=== PATIENT | male | born 1980 | race Caucasian/White ===

== ENCOUNTER 2020-06-13 22:43 | Emergency (ER) | payer OTHER, SELFPAY ==
[2020-06-13 23:00] VITALS: BP 130/74; PULSE 81; RESP 18; TEMP 36.6; O2SAT 96
[2020-06-13 23:30] LABS: Basophils Absolute Auto 0.1 K/mm3 (0.0-0.1); Basophils Percent Auto 0.5 % (0.2-1.2); Eosinophils Absolute Auto 0.2 K/mm3 (0-0.3); Eosinophils Percent Auto 1.9 % (0-4.4); Hematocrit 46.1 % (42.0-52.0); Immature Granulocyte Absolute 0.04 K/mm3 (0.00-0.031); Immature Granulocyte Percent A 0.4 % (0-0.5); Lymphocytes Absolute Auto 3.55 K/mm3 (0.9-3.2); Lymphocytes Percent Auto 36.9 % (18.3-44.2); Mean Corpuscular HGB Conc 34.7 g/dl (32-36); Mean Corpuscular Hemoglobin 31.3 pg (26-34); Mean Platelet Volume 10.4 fl (7.4-10.4); Monocytes Absolute Auto 0.8 K/mm3 (0.1-0.6); Monocytes Percent Auto 8.7 % (2.6-8.5); Neutrophils Percent Auto 51.6 % (45.5-73.1); Platelet Count Result 271 k/mm3 (150-375); Red Blood Count 5.12 M/mm3 (4.6-6.20); Red Cell Distribution Width 13.7 % (11.5-14.5); White Blood Count 9.6 K/mm3 (4.5-10.0)
[2020-06-13 23:33] LABS: Add Urine Microscopic? NO; Appearance Urine Clear (Clear); Bilirubin Urine Negative (Negative); Blood Urine Negative (Negative); Color Urine Straw (Yellow); Glucose Urine UA Negative (Negative); Ketones Urine Negative (Negative); Leukocyte Esterase Ur Negative LEU/UL (Negative); Nitrate Urine Negative (Negative); Protein Urine Negative (Negative); Specific Grav Ur 1.008 (1.001-1.035); Urobilinogen Urine Negative mg/dL (<2.0)
[2020-06-13 23:40] LABS: Alanine Aminotransferase 61 U/L (4-50); Albumin Level 4.6 g/dL (3.5-5.1); Alkaline Phosphatase 76 U/L (38-126); Anion Gap 11 mmol/L (8-16); Aspartate Amino Transferase 43 U/L (17-59); Blood Urea Nitrogen 16 mg/dL (9-20); Carbon Dioxide 24 mmol/L (22-30); Chloride 106 mmol/L (98-107); Estimated Glomerular Filt Rate > 60; Glucose 121 mg/dL (75-110); Potassium 4.1 mmol/L (3.4-5.0); Sodium 141 mmol/L (137-145)
[2020-06-13 23:46] LABS: Amphetamine Screen Urine Negative (Negative); Barbiturate Screen Urine Negative (Negative); Benzodiazepines Screen Urine Negative (Negative); Cannabinoid Screen Urine Positive (Negative); Cocaine Screen Urine Negative (Negative); Methadone Screen Urine Negative (Negative); Opiate Screen Urine Negative (Negative); Phencyclidine Screen Urine Negative (Negative)
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
[2020-06-14] LABS: Ethanol 209 mg/dL (<10)
[2020-06-14] MEDS: HALOPERIDOL LACTATE 5 MG/ML VIAL IM (00:10)
--- NOTE | 2020-06-14 00:30 | PC.NURSE ---
Pt's bagged green leafy substance taken by security and editor house organ Nava to security lock up.
[2020-06-14 06:35] VITALS: BP 100/60; PULSE 62; RESP 16; TEMP 36.6; O2SAT 96
--- NOTE | 2020-06-14 06:35 | PC.NURSE ---
Repeat ethanol level drawn and sent to lab by this RN.
[2020-06-14 06:56] LABS: Ethanol 117 mg/dL (<10)
--- NOTE | 2020-06-14 07:00 | PC.NURSE ---
rn report from Anne
--- NOTE | 2020-06-14 07:35 | PC.NURSE ---
pt sleeping at this time. no current needs. sitter at bedside.
--- NOTE | 2020-06-14 08:36 | PC.NURSE ---
pt sleeping at this time. sitter at bedside.
[2020-06-14 09:33] LABS: Ethanol 83 mg/dL (<10)
--- NOTE | 2020-06-14 09:46 | PC.NURSE ---
pt sleeping on stretcher, sitter at bedside, no current needs.
--- NOTE | 2020-06-14 10:20 | PC.NURSE ---
pt sleeping, sitter at bedside. no current needs.
[2020-06-14 11:14] LABS: Ethanol 53 mg/dL (<10)
--- NOTE | 2020-06-14 11:15 | PC.NURSE ---
pt sleeping, no current needs. Lunch tray ordered.
--- NOTE | 2020-06-14 12:10 | PC.NURSE ---
pt eating lunch tray, no current needs .sitter at bedside.
--- NOTE | 2020-06-14 13:10 | PC.NURSE ---
pt sleeping, sitter at bedside no current needs.
--- NOTE | 2020-06-14 14:20 | PC.NURSE ---
pt sleeping on cot. no current needs, sitter at bedside.
--- NOTE | 2020-06-14 14:55 | PC.NURSE ---
[facility] has no beds at this time.
--- NOTE | 2020-06-14 15:15 | PC.NURSE ---
sitter at bedside, pt resting on stretcher. no current needs.
--- NOTE | 2020-06-14 15:49 | PC.NURSE ---
Kevon gomes and recommending dropper tank storage placement. per dr victoria Reyes, RN
--- NOTE | 2020-06-14 16:19 | PC.NURSE ---
pt resting on stretcher, no current needs. sitter at bedside.
--- NOTE | 2020-06-14 17:50 | PC.NURSE ---
pt resting on stretcher, no current needs . sitter at bedside..
--- NOTE | 2020-06-14 17:56 | PC.NURSE ---
RN spoke with Yazmin urbano [facility]
[2020-06-14 18:06] VITALS: BP 128/78; PULSE 67; RESP 18; O2SAT 98
--- NOTE | 2020-06-14 18:09 | PC.NURSE ---
pt resting on stretcher, sitter at bedside, vss, no current needs.
--- NOTE | 2020-06-14 18:21 | PC.NURSE ---
Kurt Martin (intake) spoke with RN about possible placement.
--- NOTE | 2020-06-14 19:20 | PC.NURSE ---
rn report given to
--- NOTE | 2020-06-14 19:49 | PC.NURSE ---
Spoke with Tish from Crisis---she will follow up with aTmmy if unable to place tonight she will restart looking for placement in AM
[2020-06-14] MEDS: NICOTINE (*PBKC) 21 MG PATCH 1 PATCH TRANSDERM (19:52)
[2020-06-15] MEDS: ACIDOPHILUS/BULGARICUS CHEWABLE TABLET 1 TABLET PO (05:19)
[2020-06-15 06:26] VITALS: BP 122/96; PULSE 43; RESP 16; TEMP 36.9; O2SAT 98
--- NOTE | 2020-06-15 06:34 | PC.NURSE ---
Spoke with Kay at [facility]--she has evaluation and will be placing call to [facility] for referral
--- NOTE | 2020-06-15 07:10 | PC.NURSE ---
Report to oncoming shift RN
--- NOTE | 2020-06-15 07:22 | PC.NURSE ---
Pt requesting to take a shower at this time.
--- NOTE | 2020-06-15 07:51 | PC.NURSE ---
Pt taken to room 230 by ED security and certified control systems technician to take a shower
--- NOTE | 2020-06-15 09:34 | PC.NURSE ---
Faxed face sheet to [facility] called and stated that pt was denied from [facility]
--- NOTE | 2020-06-15 09:50 | PC.NURSE ---
Called pharmacy to send up Nicotine patch. Told them that his patch from last night fell off due to sweat
[2020-06-15] MEDS: NICOTINE (*PBKC) 21 MG PATCH 1 PATCH TRANSDERM (10:45)
[2020-06-15 10:55] VITALS: BP 130/91; PULSE 57; RESP 18; TEMP 36.7; O2SAT 97
--- NOTE | 2020-06-15 10:56 | PC.NURSE ---
Pt chart faxed to [facility]
[2020-06-15 12:14] LABS: SARS-CoV-2 RNA PCR Negative
--- NOTE | 2020-06-15 14:02 | PC.NURSE ---
Pt is taking all of his belonging at this time. Security retrieved his bag of marijuana from the safe and is taking that as well
[2020-06-15 14:35] VITALS: BP 141/98; PULSE 64; RESP 18; TEMP 36.9; O2SAT 97
--- NOTE | 2020-06-15 16:19 | PC.NURSE ---
Pt denied from [facility]
--- NOTE | 2020-06-15 18:06 | PC.NURSE ---
Tish from crisis called and stated that she will have someone come out tonight and have him reevaluated
[2020-06-15 18:13] VITALS: BP 135/99; PULSE 73; RESP 22; O2SAT 98
--- NOTE | 2020-06-15 19:10 | PC.NURSE ---
Report received from off-going RN. Patient has no requests and sitter is with the patient. It is reported that crisis is to come out and re-evaluate the patient this evening. Patient is aware.
--- NOTE | 2020-06-15 23:59 | PC.NURSE ---
Pt on phone or approx 10 min. Back to room without incident. Sitter at bedside.
--- NOTE | 2020-06-16 00:06 | PC.NURSE ---
Addendum entered by Nava Moyer RN 06/16/20 00:14: [employer] made aware, called Crisis to have Rita call about this patient. Original Note: Per paraoptometricpastora Humphries, she states they were talking about where he was from , he told her [place], he then got up and ran out the EMS doors. This RN walked out the EMS door to see if I could find the patient. I heard someone yell, there was a car at the end of the hospital road, the [facility] side, he jumped in and the car took off quickly. Security came outside. The pt was already gone.
--- NOTE | 2020-06-16 00:11 | PC.NURSE ---
Patient was in room with sitter sitting at the door of room 15. At 0002 on 06/16/2020 the patient sitter yelled to nurses station that patient was running and patient was noted to be running down the [place] and exited the ED via the ambulance bay doors. Patient ran from the ED and across the parking lot and entered a car on the road across from the ED entrance. Unable to determine the type of car that he got into. ED Charge nurse notified security and had PD called.
--- NOTE | 2020-06-16 00:16 | PC.NURSE ---
Rita from Crisis made aware pt eloped.
--- NOTE | 2020-06-16 01:15 | PC.NURSE ---
0006[facility]
== END 2020-06-16 00:10 | disposition left against medical advice (07) ==
PROVIDERS: Emergency Medicine; Emergency Provider Emergency Medicine
DX: F32.9 Major depressive disorder, single episode, unspecified (principal); Z20.828 Contact with and (suspected) exposure to other viral communicable diseases
CPT/HCPCS: 36415; 80053; 80307; 81003; 84443; 85025; 87635; 96372; 99284; A9270; C9803; J1630; J2060; U0003

== ENCOUNTER 2021-02-03 09:49 | Emergency (ER) | payer OTHER, SELFPAY ==
--- NOTE | ~2021-02-03 | XR_ITS ---
EXAMINATION: XR wrist RT min 3V EXAM DATE: 02/03/2021 10:39 INDICATION: No known recent injury provided at this time. Pain of the right wrist. TECHNIQUE: Right wrist frontal, frontal with ulnar deviation, oblique and lateral projections obtain ed and reviewed. Correlation is made to right hand exam 05/12/2016. FINDINGS: Right wrist scapholunate joint space is maintained. There are no acute fractures or disloc ations identified. There is no subcutaneous gas. The soft tissue is unremarkable. There are no ra diopaque foreign bodies. IMPRESSION: 1. Unremarkable right wrist exam. Reviewed, dictated and finalized at location A.
--- NOTE | 2021-02-03 09:56 | ED.GENADULT ---
HPI - General Adult General Chief complaint: Extremity Injury, Upper Stated complaint: right wrist pain Time Seen by Provider: 02/03/21 09:56 Source: patient Mode of arrival: ambulatory Limitations: no limitations History of Present Illness HPI narrative: 40-year-old male patient presents to the [facility] with complaints of right wrist pain that started 2 days ago. Patient states yesterday he was doing some repetitive motion of opening boxes all day. Patient states he has been at this new job now for about a month. Patient states it started swelling after work yesterday and got increasingly painful. Denies take anything for pain but states he did ice it yesterday. Patient denies any numbness or tingling to the fingers. Related Data Home Medications Medication Instructions Recorded Confirmed No Home Medications 02/03/21 02/03/21 Allergies Allergy/AdvReac Type Severity Reaction Status Date / Time Mushroom Allergy Mild Unknown Uncoded 06/13/20 23:10 Review of Systems Review of Systems: Narrative: CONSTITUTIONAL: Denies fever, chills, or sweats. EYES: Denies visual changes, redness, or discharge. ENT: Denies rhinorrhea, congestion, sore throat, or otalgia. CARDIOVASCULAR: Denies chest pain, palpitations, or edema. RESPIRATORY: Denies cough or dyspnea. GASTROINTESTINAL: Denies abdominal pain, nausea, vomiting, or diarrhea. GENITOURINARY: Denies dysuria or hematuria. SKIN: Denies rash or itching. MUSCULOSKELETAL: Denies back pain, joint pain, or myalgia. Positive right wrist pain NEUROLOGIC: Denies headache, numbness, or weakness. PSYCHIATRIC: Denies anxiety or depression. PMFSH Past Medical History Medical History Depression Surgical History Surgical History No pertinent past surgical history Social History Social History Substance use: current Substance use type: marijuana Comments At the time of my signature I agree with nursing past medical history, surgical, social, and family history. There is no relevant family history pertinent to the presenting complaint. Exam Narrative: Exam Narrative: GENERAL: Well-appearing, well-nourished, and in no acute distress. HEAD: Normocephalic, atraumatic. EYES: PERRLA and EOMI. ENT: Nares clear, no rhinorrhea or epistaxis. Mucous membranes moist. NECK: Supple. No lymphadenopathy CHEST: Clear to auscultation. No respiratory distress. HEART: Regular rate and rhythm. No murmur heard. Normal peripheral pulses. ABDOMEN: Soft, nontender, nondistended, normal active bowel sounds. EXTREMITIES: The R wrist is without obvious asymmetry or deformity when compared to the L wrist. No surface trauma, open wounds, swelling, or obvious deformity. No overlying erythema or warmth. No bony crepitus or focal area of TTP. Patient does have a slight bump noted to the anterior wrist medial and there does seem to be some elasticity noted to this area with flexion and extension which is what is causing the pain to the area. No scaphoid fullness or tenderness to direct palpation or axial load. Pain with but normal flex/extension, normal ulnar/radial deviation. Motor/sensory function of ulnar, radial, median nerves intact. Ulnar and radial pulses intact. Negaitve Phalen's/Tinel's sign. Negative Miguel test. SKIN: Warm, dry, no rash. NEURO: No focal deficits. Alert and oriented x3. Course Vital Signs Vital signs: Vital Signs Temperature 35.8 C L 02/03/21 10:32 Pulse Rate 60 02/03/21 10:32 Respiratory Rate 16 02/03/21 10:32 Blood Pressure 142/93 H 02/03/21 10:32 Pulse Oximetry 100 02/03/21 10:32 Temperature 35.8 C L 02/03/21 10:32 Pulse Rate 60 02/03/21 10:32 Respiratory Rate 16 02/03/21 10:32 Blood Pressure 142/93 H 02/03/21 10:32 Pulse Oximetry 100 02/03/21 10:32 Vital signs reviewed
--- NOTE | 2021-02-03 10:12 | PC.NURSE ---
Multiple attempts to contact pt have been unsuccessful. Phone goes straight to voicemail. Will continue to attempt to reach pt.
[2021-02-03 10:32] VITALS: BP 142/93; PULSE 60; RESP 16; TEMP 35.8; O2SAT 100
== END 2021-02-03 10:57 | disposition home or self-care (01) ==
PROVIDERS: Emergency Provider Nurse Practitioner Family
DX: S63.501A Unspecified sprain of right wrist, initial encounter (principal); X50.3XXA Overexertion from repetitive movements, initial encounter; Y99.0 Civilian activity done for income or pay
CPT/HCPCS: 73110; 99213; G0463

== ENCOUNTER 2022-06-04 03:42 | Emergency (ER) | payer OTHER, SELFPAY ==
--- NOTE | ~2022-06-04 | XR_ITS ---
XR chest 1V portable DATE: 06/04/2022 06:06 INDICATION: Nonproductive cough. Shortness of breath for 2 days. TECHNIQUE: Portable upright AP chest on 06/04/2022 at 0556 hours COMPARISON: 10/21/2018 AP and lateral chest FINDINGS: Mild bibasilar infiltrate or atelectasis. The lungs otherwise appear clear. No pleural effu abhishek or pulmonary mass congestion or pneumothorax. Normal heart size. IMPRESSION: Mild bibasilar infiltrate or atelectasis, left greater than right Reviewed, dictated and finalized at location A.
[2022-06-04 03:46] VITALS: BP 114/76; PULSE 70; RESP 20; TEMP 36.1; O2SAT 98
--- NOTE | 2022-06-04 04:13 | ECG_ITS ---
Measurements Intervals [place] Rate: 55 P: 47 HI: 156 QRS: 5 QRSD: 85 T: -11 QT: 408 QTc: 391 Interpretive Statements SINUS BRADYCARDIA NONSPECIFIC ST & T-WAVE ABNORMALITY- INFERIOR LEADS BORDERLINE ECG Electronically Signed On 06-04-2022 7:15:43 CDT by Jose Raul Ortega D.O.
--- NOTE | 2022-06-04 04:14 | ED.SOB ---
HPI - SOB/Dyspnea General Chief Complaint: Shortness of Breath/Dyspnea Stated Complaint: shortness of breath Time Seen by Provider: 06/04/22 04:04 History of Present Illness HPI Narrative: Patient is a 42-year-old male complaining of shortness of breath, cough, chest tightness that started when he woke up this morning. Patient states that he has a history of asthma and ran out of his inhaler, claims that the above symptoms is similar when he has an asthma attack. Patient denies any abdominal pain, nausea, vomiting, diaphoresis, fever or chills. Related Data Allergies Allergy/AdvReac Type Severity Reaction Status Date / Time Mushroom Allergy Mild Unknown Uncoded 06/04/22 03:48 Review of Systems Review of Systems: All systems reviewed & are unremarkable except as noted in HPI and below Constitutional: Constitutional: Denies body ache(s), Denies chills, Denies excessive sweating, Denies fatigue, Denies fever(s), Denies headache(s), Denies lethargy, Denies malaise, Denies weakness and Denies weight loss Eyes: Eyes: Denies blurry vision, Denies change in vision and Denies loss of vision ENT: Denies dizziness, Denies ear discharge, Denies headache(s), Denies lip swelling, Denies epistaxis, Denies nasal congestion, Denies neck pain, Denies throat swelling and Denies tongue swelling Cardiovascular: Cardiovascular: Denies chest pain, Denies chest pain at rest, Denies chest pain with activity, Denies diaphoresis, Denies rapid heart rate, Denies edema, Denies irregular heart rhythm, Denies lightheadedness, Denies palpitations, Denies dyspnea and Denies dyspnea on exertion Respiratory: Respiratory: Denies chest congestion, Denies hemoptysis and Denies dyspnea on exertion Gastrointestinal: Gastrointestinal: Denies abdominal pain, Denies melena, Denies hematochezia, Denies diarrhea, Denies nausea, Denies vomiting and Denies hematemesis Musculoskeletal: Musculoskeletal: Denies abnormal gait, Denies deformity, Denies joint swelling, Denies limited range of motion, Denies neck pain and Denies numbness Neurologic: Denies Abnormal speech present, Denies abnormal gait, Denies confusion, Denies dizziness, Denies headache(s), Denies focal weakness, Denies loss of vision, Denies numbness, Denies Other visual disturbances, Denies Sensory deficit (Neuro) and Denies weakness Psychiatric: Psychiatric: Denies confusion, Denies depression, Denies auditory hallucinations, Denies homicidal ideation and Denies suicidal ideation Endocrine: Endocrine: Denies cold intolerance, Denies excessive sweating, Denies fatigue, Denies heat intolerance and Denies palpitations Hematologic/Lymphatic: Hematologic/Lymphatic: Denies easy bleeding and Denies easy bruising Allergic/Immunologic: Allergic/Immunologic: Denies lip swelling, Denies throat swelling and Denies tongue swelling PMFSH Past Medical History Medical History Depression Surgical History Surgical History No pertinent past surgical history Social History Social History Substance use: current Substance use type: marijuana Comments Past medical history: Asthma Family history: None Social history: Positive for smoker, no EtOH use, occasional marijuana use Exam Const: General: cooperative, healthy appearing, comfortable, no acute distress, well developed, alert and awake; No confusion Orientation/consciousness: oriented to person, oriented to place, oriented to time, patient oriented x3 and No confusion Limitations: no limitations HENMT: Head: normal to inspection, normocephalic and atraumatic Ears: hearing grossly normal bilaterally, TM normal on the right and TM normal on the left General nose exam: Normal external nose present, Normal nares present and No nasal discharge present Face and sinus: normal facial exam Mouth: Yes Normal or
[2022-06-04 04:25] VITALS: PULSE 55; RESP 18
[2022-06-04] MEDS: IPRATROPIUM BR 0.02% INH SOLN 0.5 MG/2.5 ML VIAL INHALATION (04:25)
[2022-06-04] MEDS: ALBUTEROL SULFATE NEB 2.5 MG/3 ML INH 5 MG INHALATION (04:25)
[2022-06-04] MEDS: methylPREDNISolone SOD SUCC 125 MG VIAL IV PUSH (04:37)
[2022-06-04 04:45] LABS: Basophils Absolute Auto 0.1 K/mm3 (0.0-0.1); Basophils Percent Auto 0.8 % (0.2-1.2); Eosinophils Absolute Auto 0.3 K/mm3 (0-0.3); Eosinophils Percent Auto 2.6 % (0-4.4); Hematocrit 43.9 % (42.0-52.0); Hemoglobin 14.5 g/dL (14.0-18.0); Immature Granulocyte Absolute 0.03 K/mm3 (0.00-0.031); Immature Granulocyte Percent A 0.3 % (0-0.5); Lymphocytes Absolute Auto 3.56 K/mm3 (0.9-3.2); Lymphocytes Percent Auto 35.5 % (18.3-44.2); Mean Corpuscular Hemoglobin 29.9 pg (26-34); Mean Corpuscular Volume 90.5 fl (80-100); Mean Platelet Volume 10.7 fl (7.4-10.4); Monocytes Absolute Auto 0.8 K/mm3 (0.1-0.6); Monocytes Percent Auto 8.1 % (2.6-8.5); Neutrophils Absolute Auto 5.3 K/mm3 (1.3-6.7); Neutrophils Percent Auto 52.7 % (45.5-73.1); Platelet Count Result 231 k/mm3 (150-375); Red Blood Count 4.85 M/mm3 (4.6-6.20)
[2022-06-04 05:05] LABS: Anion Gap 9 mmol/L (8-16); Blood Urea Nitrogen 14 mg/dL (9-20); Carbon Dioxide 26 mmol/L (22-30); Chloride 106 mmol/L (98-107); Estimated CRCL calculation 80 ml/min; Estimated Glomerular Filt Rate > 60; Glucose 105 mg/dL (65-110); Potassium 3.5 mmol/L (3.4-5.0); Sodium 141 mmol/L (137-145)
[2022-06-04 05:11] LABS: Troponin I < 0.012 ng/mL (0.000-0.034)
[2022-06-04 06:22] VITALS: BP 118/76; PULSE 89; RESP 20; O2SAT 98
== END 2022-06-04 06:23 | disposition home or self-care (01) ==
LOC: ANHED 04:21
PROVIDERS: Emergency Provider Emergency Medicine
DX: J45.901 Unspecified asthma with (acute) exacerbation (principal); R00.1 Bradycardia, unspecified; R94.31 Abnormal electrocardiogram [ECG] [EKG]
CPT/HCPCS: 36415; 71045; 80048; 84484; 85025; 93005; 94640; 96374; 99284; J2930

== ENCOUNTER 2022-11-16 13:32 | Emergency (ER) | payer OTHER, SELFPAY ==
--- NOTE | ~2022-11-16 | XR_ITS ---
EXAMINATION: XR chest 2V DATE: 11/16/2022 14:06 INDICATION: Shortness of breath TECHNIQUE: PA and lateral views of the chest are obtained. COMPARISON: 06/04/2022 FINDINGS: The lungs are free of acute opacities. No pleural effusion or pneumothorax. The cardiomedia stinal silhouette is normal. The visualized bones and soft tissues are unremarkable. IMPRESSION: 1. No acute cardiopulmonary abnormality. Reviewed, dictated and finalized at location B. ROOM OPERATOR
[2022-11-16 13:37] VITALS: BP 121/84; PULSE 86; RESP 16; TEMP 36.8; O2SAT 99
--- NOTE | 2022-11-16 14:15 | ED.URI ---
HPI - URI/Sore Throat General Chief Complaint: Upper Respiratory Infection Stated Complaint: sob Time Seen by Provider: 11/16/22 14:15 Source: patient Mode of arrival: ambulatory Limitations: no limitations History of Present Illness HPI Narrative: [age] male presented requesting an albuterol inhaler. Of note, he was sent to the facility for CXR by pcp with order, but requests to be seen. He endorses a history of asthma. Has been coughing and occasionally short of breath with wheezing. Also states that night he wakes up short of breath. He has been following with his primary care provider for testing, but has not had inhaler refill. He currently denies chest pain, palpitations, shortness of breath, nausea, vomiting diarrhea, fevers or chills. Related Data Allergies Allergy/AdvReac Type Severity Reaction Status Date / Time Mushroom Allergy Mild Unknown Uncoded 11/16/22 14:06 Review of Systems Review of Systems: CONSTITUTIONAL: Denies body aches, fever, chills, or sweats. EYES: Denies visual changes, redness, or discharge. ENT: Denies rhinorrhea, congestion, sore throat, or otalgia. CARDIOVASCULAR: Denies chest pain, palpitations, or edema. RESPIRATORY: per HPI GASTROINTESTINAL: Denies abdominal pain, nausea, vomiting, or diarrhea. GENITOURINARY: Denies dysuria or hematuria. SKIN: Denies rash, itching, or wounds. MUSCULOSKELETAL: Denies back pain, joint pain, or myalgia. NEUROLOGIC: Denies headache, numbness, tingling, or weakness. All systems reviewed & are unremarkable except as noted in HPI and below PMFSH Past Medical History Medical History Depression Surgical History Surgical History No pertinent past surgical history Social History Social History Substance use: current Substance use type: marijuana Comments At time of signature, I have reviewed and agree with nursing past medical, surgical, social and family history unless otherwise noted. Please see nursing chart for further information. There is no relevant family history pertinent to the presenting complaint Exam Narrative: GENERAL: Well-appearing, in no acute distress. EYES: EOMI. No redness or drainage. Conjunctivae normal. ENT: Mucous membranes pink and moist. No rhinorrhea. TMs normal bilaterally. Throat normal. Uvula midline. NECK: Normal AROM. Supple. CHEST: No respiratory distress. LCTAB HEART: Regular rate and rhythm. No murmur appreciated. ABDOMEN: Soft, nontender, nondistended, normal active bowel sounds. EXTREMITIES: Normal range of motion. No edema. SKIN: Warm, dry, no rash. Capillary refill normal. Normal skin turgor. NEURO: Alert and oriented x3. Gait steady. Course Course Emergency Course: Patient is aware of diagnosis, understands and agrees to treatment plan. Anticipatory guidance given. Patient agrees to follow-up as directed and is aware of reasons to seek care at the emergency department. Portions of this record may have been created with voice recognition software Level of Care: Express Care Visit Vital Signs Vital signs: Vital Signs Temperature 98.3 F 11/16/22 13:37 Pulse Rate 86 11/16/22 13:37 Respiratory Rate 16 11/16/22 13:37 Blood Pressure 121/84 11/16/22 13:37 Pulse Oximetry 99 11/16/22 13:37 Oxygen Delivery Room Air 11/16/22 13:37 Temperature 98.3 F 11/16/22 13:37 Pulse Rate 86 11/16/22 13:37 Respiratory Rate 16 11/16/22 13:37 Blood Pressure 121/84 11/16/22 13:37 Pulse Oximetry 99 11/16/22 13:37 Oxygen Delivery Room Air 11/16/22 13:37 MDM - URI/Sore Throat MDM Narrative Medical decision making narrative: Results of chest x-ray reviewed with patient. He will be following with his primary care provider for further evaluation testing Advised supportive measures and signs/sympto
== END 2022-11-16 14:30 | disposition home or self-care (01) ==
PROVIDERS: Emergency Provider Nurse Practitioner Family; PCP Emergency Medicine
DX: R05.9 Cough, unspecified (principal); F12.90 Cannabis use, unspecified, uncomplicated
CPT/HCPCS: 71046; 99213; G0463

== ENCOUNTER 2022-12-09 19:55 | Observation (INO) | payer OTHER, SELFPAY ==
--- NOTE | ~2022-12-09 | XR_ITS ---
EXAMINATION: XR abdomen obstructive series DATE: 12/09/2022 20:22 INDICATION: Abdominal pain. TECHNIQUE: Upright and supine views of the abdomen on 3 radiographs were obtained. COMPARISON: None. FINDINGS: There is dilated small bowel in left abdomen. The colon is normal in caliber. No free intra peritoneal gas. IMPRESSION: 1. Dilated small bowel, consistent with adynamic ileus versus small bowel obstruction. Reviewed, dictated and finalized at location A. S ARTIST IMPRESSION: 1. Dilated small bowel, consistent with adynamic ileus versus small bowel obstr uction.
--- NOTE | ~2022-12-09 | CT_ITS ---
EXAMINATION: CT abdomen pelvis w con DATE: 12/09/2022 22:04 INDICATION: Left lower quadrant abdominal pain. TECHNIQUE: Computed tomography (CT) of the abdomen and pelvis was performed with 100 mL Omnipaque 350 intravenous contrast. Automated exposure control and iterative reconstruction technique were employe d. The dose-length product was 372.58 mGy-cm. COMPARISON: Chest CT 09/09/2015 FINDINGS: The visualized portions of the lung bases demonstrate mild atelectasis. No pleural effusion . The heart size is normal. No pericardial effusion. There is a small sliding hiatal hernia. The live r, gallbladder, spleen, pancreas, and adrenal glands are normal. There are cysts in the kidneys measu ring up to 15 mm on the left. There are scattered diverticula in the colon. There is wall thickening of the sigmoid colon. There is fat stranding adjacent to the sigmoid colon with punctate foci of free gas centered at a diverticulum. There are no dilated loops of bowel. The appendix is normal. There a re no pathologically enlarged lymph nodes. There is trace pelvic ascites. There is mild lumbar spondy losis. IMPRESSION: 1. Acute sigmoid diverticulitis with microperforation. No abscess. Reviewed, dictated and finalized at location A. CING MACHINE OPERATOR
[2022-12-09 20:27] VITALS: BP 134/64; PULSE 84; RESP 16; TEMP 37.6; O2SAT 97
[2022-12-09 21:28] LABS: Basophils Percent Auto 0.2 % (0.2-1.2); Eosinophils Percent Auto 0.2 % (0-4.4); Hemoglobin 15.6 g/dL (14.0-18.0); Immature Granulocyte Absolute 0.06 K/mm3 (0.00-0.031); Immature Granulocyte Percent A 0.3 % (0-0.5); Lymphocytes Absolute Auto 2.16 K/mm3 (0.9-3.2); Lymphocytes Percent Auto 11.3 % (18.3-44.2); Mean Corpuscular HGB Conc 33.9 g/dl (32-36); Mean Corpuscular Hemoglobin 30.2 pg (26-34); Mean Platelet Volume 10.2 fl (7.4-10.4); Monocytes Absolute Auto 1.8 K/mm3 (0.1-0.6); Monocytes Percent Auto 9.5 % (2.6-8.5); Neutrophils Absolute Auto 15.1 K/mm3 (1.3-6.7); Neutrophils Percent Auto 78.5 % (45.5-73.1); Platelet Count Result 247 k/mm3 (150-375); Red Blood Count 5.17 M/mm3 (4.6-6.20); Red Cell Distribution Width 14.2 % (11.5-14.5); White Blood Count 19.2 K/mm3 (4.5-10.0)
[2022-12-09 21:41] LABS: Alanine Aminotransferase 31 U/L (6-50); Albumin Level 4.1 g/dL (3.5-5.1); Alkaline Phosphatase 96 U/L (38-126); Anion Gap 7 mmol/L (8-16); Aspartate Amino Transferase 26 U/L (17-59); Bilirubin,Total 1.1 mg/dL (0.2-1.3); Blood Urea Nitrogen 12 mg/dL (9-20); Calcium 8.4 mg/dL (8.4-10.2); Carbon Dioxide 24 mmol/L (22-30); Chloride 104 mmol/L (98-107); Estimated CRCL calculation 88 ml/min; Estimated Glomerular Filt Rate > 60; Glucose 99 mg/dL (65-110); Lipase 634 U/L (23-300); Potassium 3.9 mmol/L (3.4-5.0); Sodium 135 mmol/L (137-145)
--- NOTE | 2022-12-09 21:50 | ED.ABDPAIN ---
HPI - Abdominal Pain General Chief Complaint: Abdominal Pain <RONALDO Louise Last Filed: 12/10/22 00:07> Stated Complaint: abdominal pain <RONALDO Louise Last Filed: 12/10/22 00:07> Time Seen by Provider: 12/09/22 21:01 <RONALDO Louise Last Filed: 12/10/22 00:07> Source: patient <RONALDO Louise Last Filed: 12/10/22 00:07> Mode of arrival: ambulatory <RONALDO Louise Last Filed: 12/10/22 00:07> Limitations: no limitations <RONALDO Louise Last Filed: 12/10/22 00:07> History of Present Illness HPI narrative: Patient is a 42-year-old male who presents to the ED with report of left lower quadrant abdominal pain. Patient reports he developed pain around 3 AM this morning. Pain began suddenly. Worst in left lower abdomen, but radiates around to his back, into his left groin, and diffusely throughout his abdomen. He thought he had to have a bowel movement this morning, but was unable to. His last BM was yesterday and normal. He did take MiraLAX today and subsequently had a bowel movement. Denied rectal bleeding or melena. He also reports nausea, but denies vomiting, urinary symptoms, fevers, chest pain, difficulty breathing. He has not taken anything for pain. <RONALDO Louise Last Filed: 12/10/22 00:07> Related Data Allergies/Adverse Reactions: Allergies Allergy/AdvReac Type Severity Reaction Status Date / Time Mushroom Allergy Mild Unknown Uncoded 11/16/22 14:06 <RONALDO Louise Last Filed: 12/10/22 00:07> Review of Systems Review of Systems: CONSTITUTIONAL: Denies fever, chills, or sweats. CARDIOVASCULAR: Denies chest pain. RESPIRATORY: Denies dyspnea. GASTROINTESTINAL: See HPI. GENITOURINARY: Denies dysuria or hematuria. MUSCULOSKELETAL: See HPI. NEUROLOGIC: Denies headache, numbness, or weakness. <Ame Joyner PA-C - Last Filed: 12/10/22 00:07> All systems reviewed & are unremarkable except as noted in HPI and below <Ame Joyner PA-C - Last Filed: 12/10/22 00:07> PMFSH Past Medical History Medical History: Medical History Depression <Ame Joyner PA-C - Last Filed: 12/10/22 00:07> Surgical History Surgical History: Surgical History No pertinent past surgical history <Ame Joyner PA-C - Last Filed: 12/10/22 00:07> Social History Social History: Social History Smoking packs per day: 1 Smoking cigarettes per day: 20.0 Smoking status: Current every day smoker Tobacco type: cigarettes Alcohol intake: never Substance use: current Substance use type: marijuana Last use: 12/09/22 Lack of Transportation: No Lack of Food: Never True Current Housing: I Have Housing Concerned About Future Housing: No Difficulty Paying Gas/Electric Bills: No Difficulty Paying for Meds: No Currently Unemployed: No Education: Grade School Difficulty w/ Childcare or Family Care: No Spiritual care concerns: No <Ame Joyner PA-C - Last Filed: 12/10/22 00:07> Exam Narrative: GENERAL: Well appearing, well-nourished, non-toxic, in mild acute distress d/t pain. HEAD: Normocephalic, atraumatic. NECK: Supple. No adenopathy, no masses. RESPIRATORY: Airway patent, respirations nonlabored. Clear to auscultation bilaterally, no rales, rhonchi, wheezing. CARDIOVASCULAR: Regular rate and rhythm without murmurs, rubs, or gallops. Radial pulses 2+ and equal bilaterally. ABDOMINAL: Soft, diffuse tenderness throughout lower abdomen, worst in left lower quadrant. Palpation in right lower abdomen reproduces pain in left lower abdomen. Nondistended, no hepatosplenomegaly. Normoactive BS. MUSCULOSKELETAL: Moves all extremities. S
[2022-12-09] MEDS: MORPHINE SULFATE (*CRX) 4 MG/ML INJ IV PUSH (22:18)
[2022-12-09] MEDS: ONDANSETRON INJ 4 MG/2 ML VIAL IV PUSH (22:20)
[2022-12-09] MEDS: SODIUM CHLORIDE 0.9% IV 1,000 ML 999 ML IV CONT ×2 (22:20→23:59)
[2022-12-09 22:29] LABS: Lactic Acid Reflex 0.8 mmol/L (0.7-2.0)
[2022-12-09 22:57] LABS: Influenza A QL RT-PCR Negative (Negative); Influenza B QL RT-PCR Negative (Negative); SARS-CoV-2 RNA PCR Negative
[2022-12-09 23:09] VITALS: BP 98/52; PULSE 81; RESP 16; O2SAT 99
[2022-12-09 23:49] LABS: Appearance Urine Clear (Clear); Bilirubin Urine Negative (Negative); Blood Urine Trace-intact (Negative); Color Urine Yellow (Yellow); Glucose Urine UA Negative (Negative); Ketones Urine Negative (Negative); Leukocyte Esterase Ur Negative LEU/UL (Negative); Nitrate Urine Negative (Negative); Protein Urine Trace mg/dL (Negative); Urobilinogen Urine 0.2 mg/dL (<2.0)
[2022-12-09 23:59] LABS: Mucus Urine Rare /lpf; WBC Urine 0-3 /hpf
[2022-12-10 00:01] LABS: Add Urine Microscopic? YES
[2022-12-10 00:03] VITALS: BP 126/75; PULSE 80; RESP 18; O2SAT 98
--- NOTE | 2022-12-10 00:16 | ADMGEN ---
This patient, Juan Pillai, was admitted to Medical Room 247-. Patient/family oriented to hospital policies and general routines including ID bracelet, bed and alarms, visiting hours, pain management, procedures, bathroom and other care routines, personal items, smoking policy, room service/diet, and visiting hours. Information on how to activate the Rapid Response Team has been discussed. Patient/Family are encouraged to report perceived risks to care and to ask questions if they do not understand what they are told or what they should do.
[2022-12-10 00:24] VITALS: PULSE 80; RESP 18; O2SAT 98
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
[2022-12-10] MEDS: ONDANSETRON INJ 4 MG/2 ML VIAL IV PUSH ×2 (02:28→23:17)
[2022-12-10] MEDS: SODIUM CHLORIDE 0.9% IV 1,000 ML 125 ML IV CONT ×3 (02:28→20:19)
[2022-12-10] MEDS: MORPHINE SULFATE (*CRX) 4 MG/ML INJ IV PUSH ×5 (02:28→23:17)
[2022-12-10 06:00] VITALS: BP 103/64; PULSE 85; RESP 20; TEMP 37.3; O2SAT 95
[2022-12-10 08:16] LABS: Anion Gap 3 mmol/L (8-16); Blood Urea Nitrogen 11 mg/dL (9-20); Calcium 7.9 mg/dL (8.4-10.2); Carbon Dioxide 21 mmol/L (22-30); Chloride 106 mmol/L (98-107); Estimated CRCL calculation 88 ml/min; Estimated Glomerular Filt Rate > 60; Glucose 94 mg/dL (65-110); Potassium 3.8 mmol/L (3.4-5.0); Sodium 130 mmol/L (137-145)
[2022-12-10 08:17] LABS: Lipase 48 U/L (23-300)
[2022-12-10] MEDS: ENOXAPARIN 40 MG/0.4 ML SYRINGE SUB-Q (08:56)
[2022-12-10 11:09] LABS: Basophils Percent Auto 0.2 % (0.2-1.2); Eosinophils Percent Auto 0.2 % (0-4.4); Hematocrit 41.6 % (42.0-52.0); Immature Granulocyte Absolute 0.09 K/mm3 (0.00-0.031); Immature Granulocyte Percent A 0.5 % (0-0.5); Lymphocytes Absolute Auto 2.29 K/mm3 (0.9-3.2); Lymphocytes Percent Auto 12.6 % (18.3-44.2); Mean Corpuscular HGB Conc 33.7 g/dl (32-36); Mean Corpuscular Hemoglobin 30.6 pg (26-34); Mean Platelet Volume 10.3 fl (7.4-10.4); Monocytes Absolute Auto 1.6 K/mm3 (0.1-0.6); Monocytes Percent Auto 8.8 % (2.6-8.5); Neutrophils Absolute Auto 14.2 K/mm3 (1.3-6.7); Neutrophils Percent Auto 77.7 % (45.5-73.1); Platelet Count Result 215 k/mm3 (150-375); Red Blood Count 4.57 M/mm3 (4.6-6.20); Red Cell Distribution Width 14.3 % (11.5-14.5); White Blood Count 18.2 K/mm3 (4.5-10.0)
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
[2022-12-10 14:00] VITALS: BP 117/61; PULSE 78; RESP 16; TEMP 36.9; O2SAT 99
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
[2022-12-10 21:04] VITALS: BP 122/68; PULSE 81; RESP 20; TEMP 37.8; O2SAT 99
--- NOTE | 2022-12-11 00:42 | PC.NURSE ---
0023 CHARTER BOAT OPERATOR CALLED NURSE STATION STATING THAT PT WAS DOWNSTAIRS REQUESTING TO COME UP TO PT ROOM. IN REPORT I WAS INFORMED BY DAY RN THAT PT AND HAD BEEN ARGUING AND PT HAD DEMANDED LEAVE HOSPITAL. DURING MY FIRST ROUND I OVERHEARD PT COMPLAINING ABOUT INCIDENT TO TOY MAKER CAM PT WAS VERY AGITATED AND STATED HE DID NOT WANT HIS IN HIS ROOM. PT CALMED DOWN AND WAS COOPERATIVE UNTIL ARRIVED AT HOSPITAL 0023. AFTER TALKING WITH CHARTER BOAT OPERATOR AND INFORMING HER PT WAS NOT ALLOWED TO COME UP PT CALLED FROM ROOM ASKING WHY WAS NOT ALLOWED UP. I INFORMED HIM THAT OUR VISITING HOURS ARE FROM 8-8 AND HE STATED SOMEONE TOLD HIM SHE WAS ALLOWED TO STAY WHICH WAS NOT TRUE. I CONFIRMED THIS WITH HOUSE SUP. PT BECAME MORE AGITATED AND REQUESTED AMA PAPERWORK. I ENTERED PT ROOM WITH PAPERWORK AND TOLD HIM I NEEDED TO TAKE OUT IV. PT WAS ON THE PHONE WITH SCREAMING ABOUT NOT BEING ABLE TO EAT. PT IS NPO RT DIVERTICULITIS. REMOVED PT IV AND SITE WAS BLEEDING 4X4 APPLIED. LEFT ROOM TO GET PT BELONGINGS BAGS AND GET MORE GAUZE FOR IV SITE. PT WAS BLEEDING FROM THE SITE ONTO THE FLOOR BUT REFUSED TO LET ME RE DRESS THE SITE. PT ENTERED THE HALLWAY YELLING PT REFUSED TO SIGN AMA PAPERWORK AND WALKED OFF THE UNIT. SECURITY LATER INFORMED ME THEY WALKED PT OUT OF HOSPITAL. CHARGE NURSE SARAH CONFIRMED PT REFUSED TO SIGN AMA PAPERWORK AND SIGNED PAPERWORK WITH ME. STEM DRYER MAINTAINER NOTIFIED OF INCIDENT, HOSPITALIST WAS IN A CODE DURING THIS TIME. PT LEFT UNIT AT 0036
--- NOTE | 2022-12-11 00:51 | PM.EVENT ---
Event Note Event Note Event Note: The patient reportedly got into a argument with his and is adamant that he is leaving against medical advice. The patient refuses to sign the AMA paperwork.
== END 2022-12-11 00:36 | disposition left against medical advice (07) ==
LOC: ANHED 23:17 → ANH2MED 23:50
PROVIDERS: Physician Assistant; Admitting Provider Internal Medicine; Emergency Provider Emergency Medicine; PCP Emergency Medicine; Visit Provider Physician Assistant
DX: K57.20 Diverticulitis of large intestine with perforation and abscess without bleeding (principal); R74.8 Abnormal levels of other serum enzymes; F17.210 Nicotine dependence, cigarettes, uncomplicated; J45.909 Unspecified asthma, uncomplicated; Z20.822 Contact with and (suspected) exposure to COVID-19
CPT/HCPCS: 36415; 74019; 74177; 80048; 80053; 81001; 83605; 83690; 85025; 87040; 87636; 96361; 96365; 96366; 96367; 96375; 96376; 99285; G0378; G0379; J0131; J1650; J2270; J2405; J2543; J7030; Q9967

== ENCOUNTER 2023-02-13 00:02 | Day surgery (SDC) | payer OTHER, SELFPAY ==
[2023-02-03 12:31] VITALS: BMI 25.4
[2023-02-13 10:43] VITALS: BP 105/76; PULSE 74; RESP 18; TEMP 36.5; O2SAT 99; BMI 25.4
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
[2023-02-13] MEDS: LACTATED RINGERS 1,000 ML 150 ML IV CONT (11:04)
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
[2023-02-13 13:12] VITALS: BP 103/57; PULSE 60; RESP 18; O2SAT 98
[2023-02-13 13:22] VITALS: BP 108/73; PULSE 62; RESP 18; O2SAT 100
[2023-02-13 13:32] VITALS: BP 114/73; PULSE 52; RESP 18; O2SAT 100
== END 2023-02-13 13:50 | disposition home or self-care (01) ==
PROVIDERS: PCP Emergency Medicine; Visit Provider Internal Medicine Gastroenterology
PROC: 0DJD8ZZ Inspection of Lower Intestinal Tract, Via Natural or Artificial Opening Endoscopic (ICD-10-PCS; CPT 45378; principal; 2023-02-13 12:30)
DX: Z09 Encounter for follow-up examination after completed treatment for conditions other than malignant neoplasm (principal); K57.30 Diverticulosis of large intestine without perforation or abscess without bleeding; K64.8 Other hemorrhoids; Z87.19 Personal history of other diseases of the digestive system; Z93.3 Colostomy status; J45.909 Unspecified asthma, uncomplicated; Z79.51 Long term (current) use of inhaled steroids; F17.210 Nicotine dependence, cigarettes, uncomplicated; F12.90 Cannabis use, unspecified, uncomplicated
CPT/HCPCS: 44388; J2704; J7120

== ENCOUNTER 2023-09-06 16:55 | Emergency (ER) | payer BC, SELFPAY ==
[2023-09-06 17:15] VITALS: BP 123/75; PULSE 76; RESP 14; TEMP 36.6; O2SAT 99
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
== END 2023-09-06 17:40 | disposition home or self-care (01) ==
PROVIDERS: Emergency Provider Nurse Practitioner Family
DX: J40 Bronchitis, not specified as acute or chronic (principal); Z20.822 Contact with and (suspected) exposure to COVID-19; F17.210 Nicotine dependence, cigarettes, uncomplicated; J45.909 Unspecified asthma, uncomplicated
CPT/HCPCS: 87426; 87804; 99213; C9803; G0463

== ENCOUNTER 2024-03-26 06:43 | Emergency (ER) | payer MEDICAID, SELFPAY ==
[2024-03-26] VITALS (8 sets, daily range): BP systolic 114–145; BP diastolic 63–78; PULSE 50–100; RESP 12–20; TEMP 36.1–36.6; O2SAT 98–100
--- NOTE | ~2024-03-26 | XR_ITS ---
Portable chest x-ray Comparison: 11/16/2022 Clinical History: Shortness of breath Findings: Lungs are clear, without focal consolidation or pleural effusion. Cardiomediastinal silho uette is stable. Bones and soft tissues are unremarkable. Impression: Normal chest. Reviewed, dictated and finalized at location . Impression: Normal chest.
--- NOTE | 2024-03-26 07:01 | ECG_ITS ---
SEE SCANNED COPY FOR CONFIRMED REPORT MTDD
[2024-03-26 07:15] LABS: Basophils Absolute Auto 0.1 K/mm3 (0.0-0.1); Basophils Percent Auto 0.6 % (0.2-1.2); Eosinophils Absolute Auto 0.3 K/mm3 (0-0.3); Eosinophils Percent Auto 3.5 % (0-4.4); Hematocrit 42.9 % (42.0-52.0); Hemoglobin 14.7 g/dL (14.0-18.0); Immature Granulocyte Absolute 0.02 K/mm3 (0.00-0.031); Immature Granulocyte Percent A 0.2 % (0-0.5); Lymphocytes Percent Auto 33.5 % (18.3-44.2); Mean Corpuscular HGB Conc 34.3 g/dl (32-36); Mean Corpuscular Hemoglobin 31.1 pg (26-34); Mean Corpuscular Volume 90.9 fl (80-100); Mean Platelet Volume 11.1 fl (7.4-10.4); Monocytes Absolute Auto 0.9 K/mm3 (0.1-0.6); Monocytes Percent Auto 9.8 % (2.6-8.5); Neutrophils Absolute Auto 4.5 K/mm3 (1.3-6.7); Neutrophils Percent Auto 52.4 % (45.5-73.1); Platelet Count Result 213 k/mm3 (150-375); Red Blood Count 4.72 M/mm3 (4.6-6.20); Red Cell Distribution Width 13.7 % (11.5-14.5); White Blood Count 8.7 K/mm3 (4.5-10.0)
[2024-03-26] MEDS: ALBUTEROL SULFATE NEB 2.5 MG/3 ML INH 15 MG INHALATION (07:21)
[2024-03-26] MEDS: IPRATROPIUM BR 0.02% INH SOLN 0.5 MG/2.5 ML VIAL 1 MG INHALATION (07:22)
[2024-03-26] MEDS: methylPREDNISolone SOD SUCC 40 MG VIAL IV PUSH (07:28)
[2024-03-26 07:29] LABS: Alanine Aminotransferase 38 U/L (6-50); Albumin Level 3.9 g/dL (3.5-5.1); Alkaline Phosphatase 80 U/L (38-126); Anion Gap 5 mmol/L (4-12); Aspartate Amino Transferase 35 U/L (17-59); Bilirubin,Total 0.4 mg/dL (0.2-1.3); Blood Urea Nitrogen 15 mg/dL (9-20); Calcium 8.9 mg/dL (8.4-10.2); Carbon Dioxide 24 mmol/L (22-30); Chloride 107 mmol/L (98-107); Estimated CRCL calculation 86 ml/min; Estimated Glomerular Filt Rate > 60; Glucose 144 mg/dL (65-110); Potassium 3.9 mmol/L (3.4-5.0); Sodium 136 mmol/L (137-145)
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
--- NOTE | 2024-03-26 07:34 | PC.NURSE ---
Assumed care of pt. Pt sitting up with updraft treatment in process. Pt talking on phone during treatment. RN instructed pt for best results with treatment he should not talk on the phone. Instructed to take deep breaths with treatment. Pt voices understanding
--- NOTE | 2024-03-26 08:51 | PC.NURSE ---
Pt tolerated Resp treatment without difficulty. Breath sound clear.
== END 2024-03-26 08:52 | disposition home or self-care (01) ==
PROVIDERS: Emergency Provider Emergency Medicine; PCP Nurse Practitioner Family
DX: J45.901 Unspecified asthma with (acute) exacerbation (principal); F90.9 Attention-deficit hyperactivity disorder, unspecified type; Z86.711 Personal history of pulmonary embolism; F41.8 Other specified anxiety disorders; F17.210 Nicotine dependence, cigarettes, uncomplicated
CPT/HCPCS: 36415; 71045; 80053; 85025; 93005; 94640; 96374; 99284; J2919

== ENCOUNTER 2024-06-09 00:12 | Emergency (ER) | payer BC, SELFPAY ==
[2024-06-09] VITALS (10 sets, daily range): BP systolic 108–118; BP diastolic 60–67; PULSE 55–65; RESP 10–20; TEMP 36.6; O2SAT 94–99
--- NOTE | ~2024-06-09 | XR_ITS ---
Portable chest x-ray Comparison: 03/26/2024 Clinical History: Shortness of breath Findings: Lungs are clear, without focal consolidation or pleural effusion. Cardiomediastinal silho uette is stable. Bones and soft tissues are unremarkable. Impression: Normal chest. Reviewed, dictated and finalized at location . Impression: Normal chest.
--- NOTE | ~2024-06-09 | CT_ITS ---
Clinical Indication: Dyspnea CT Scan of the Chest with Contrast: Technique: Contiguous sections were acquired throughout the chest after intravenous administration of 100 cc of Omnipaque 350. Dose reduction technique was used on this scan by utilizing automated expos ure control and iterative reconstruction technique. The dose-length product (DLP) was 460.69 mGy-cm. Findings: There is no evidence of any significant mediastinal, hilar or axillary lymphadenopathy. There is no f illing defect in the pulmonary arterial tree to suggest pulmonary embolus. There is no evidence of ao rtic dissection or aneurysm. There is no evidence of pleural or pericardial effusion. The lungs are clear. No pulmonary nodules or infiltrates are noted. Images through the upper abdomen reveal no abnormalities. Impression: No evidence of pulmonary embolus, aortic dissection, or aortic aneurysm. Clear lungs. Reviewed, dictated and finalized at [facility]. Impression: No evidence of pulmonary embolus, aortic dissection, or aortic aneurysm. Clear lungs.
--- NOTE | 2024-06-09 00:18 | ECG_ITS ---
Test Date: 2024-06-09 00:20:18 Measurements Intervals [place] Rate: 61 P: 53 IN: 148 QRS: 4 QRSD: 75 T: 31 QT: 397 QTc: 400 Interpretive Statements SINUS RHYTHM WITHIN NORMAL LIMITS No previous ECG available for comparison Electronically Signed On 06-09-2024 09:04:03 CDT by Julius Stevens M.D.
[2024-06-09 00:29] LABS: Basophils Absolute Auto 0.1 K/mm3 (0.0-0.1); Basophils Percent Auto 0.5 % (0.2-1.2); Eosinophils Absolute Auto 0.2 K/mm3 (0-0.3); Eosinophils Percent Auto 2.3 % (0-4.4); Hematocrit 41.4 % (42.0-52.0); Hemoglobin 14.5 g/dL (14.0-18.0); Immature Granulocyte Absolute 0.04 K/mm3 (0.00-0.031); Immature Granulocyte Percent A 0.4 % (0-0.5); Lymphocytes Absolute Auto 3.96 K/mm3 (0.9-3.2); Lymphocytes Percent Auto 39.4 % (18.3-44.2); Mean Corpuscular Hemoglobin 31.7 pg (26-34); Mean Corpuscular Volume 90.6 fl (80-100); Monocytes Absolute Auto 0.8 K/mm3 (0.1-0.6); Monocytes Percent Auto 7.7 % (2.6-8.5); Neutrophils Percent Auto 49.7 % (45.5-73.1); Platelet Count Result 224 k/mm3 (150-375); Red Blood Count 4.57 M/mm3 (4.6-6.20); Red Cell Distribution Width 13.8 % (11.5-14.5)
[2024-06-09 00:35] LABS: Alanine Aminotransferase 25 U/L (6-50); Albumin Level 3.9 g/dL (3.5-5.1); Alkaline Phosphatase 71 U/L (38-126); Anion Gap 8 mmol/L (4-12); Aspartate Amino Transferase 30 U/L (17-59); Bilirubin,Total 0.4 mg/dL (0.2-1.3); Blood Urea Nitrogen 20 mg/dL (9-20); Calcium 8.6 mg/dL (8.4-10.2); Carbon Dioxide 25 mmol/L (22-30); Chloride 102 mmol/L (98-107); Estimated CRCL calculation 67 ml/min; Estimated Glomerular Filt Rate 60; Glucose 102 mg/dL (65-110); Potassium 3.8 mmol/L (3.4-5.0); Sodium 135 mmol/L (137-145)
[2024-06-09] MEDS: IPRATROPIUM 0.5 MG/ALBUTEROL SULFATE 2.5 MG AMPUL.NEB 3 ML INHALATION (00:47)
[2024-06-09 01:00] LABS: INR 0.9; Prothrombin Time 12.4 Seconds (11.1-14.7)
[2024-06-09 01:01] LABS: Partial Thromboplastin Time 27.4 Seconds (22.3-36.8)
[2024-06-09 01:02] LABS: Lactic Acid Reflex 1.1 mmol/L (0.7-2.0)
--- NOTE | 2024-06-09 01:02 | PC.NURSE ---
Patient taken to CT at this time.
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
[2024-06-09 01:06] LABS: NT Pro B Type Natriuretic Pept < 20 pg/mL (19.9-100); Troponin I < 0.012 ng/mL (0.000-0.034)
[2024-06-09 01:12] LABS: Procalcitonin 0.1 ng/mL
[2024-06-09] MEDS: predniSONE 20 MG TABLET 60 MG PO (02:25)
[2024-06-09 02:37] LABS: Add Urine Microscopic? YES; Appearance Urine Clear (Clear); Bacteria Urine None Seen /hpf; Bilirubin Urine Negative (Negative); Blood Urine Negative (Negative); Color Urine Yellow (Yellow); Glucose Urine UA Negative (Negative); Ketones Urine Negative (Negative); Leukocyte Esterase Ur Negative LEU/UL (Negative); Nitrate Urine Negative (Negative); Non Pathogenic Casts 0-2; Protein Urine 1+ mg/dL (Negative); RBC Urine 0-2 /hpf (0-2); Specific Grav Ur > 1.045 (1.001-1.035); Squamous Epithelial Cell Urine None Seen /hpf (Few); WBC Urine 0-5 /hpf (0-3); pH Urine 8.5 (5.0-9.0)
== END 2024-06-09 02:53 | disposition home or self-care (01) ==
PROVIDERS: Emergency Provider Emergency Medicine
DX: R06.09 Other forms of dyspnea (principal); F17.210 Nicotine dependence, cigarettes, uncomplicated
CPT/HCPCS: 36415; 71045; 71275; 80053; 81001; 83605; 83880; 84145; 84484; 85025; 85610; 85730; 93005; 94640; 99284; J7512; Q9967

== ENCOUNTER 2024-12-18 08:08 | Emergency (ER) | payer BC, SELFPAY ==
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
[2024-12-18 08:23] VITALS: BP 111/67; PULSE 76; RESP 16; TEMP 37.2; O2SAT 98
[2024-12-18 08:49] LABS: EDCOVIDSCREEN Negative (Negative); EDINFLUASCREEN Negative (Negative); EDINFLUBSCREEN Negative (Negative)
== END 2024-12-18 08:53 | disposition home or self-care (01) ==
PROVIDERS: Emergency Provider Nurse Practitioner
DX: J11.1 Influenza due to unidentified influenza virus with other respiratory manifestations (principal); Z20.822 Contact with and (suspected) exposure to COVID-19; F17.210 Nicotine dependence, cigarettes, uncomplicated; J45.909 Unspecified asthma, uncomplicated; Z86.711 Personal history of pulmonary embolism
CPT/HCPCS: 87426; 87804; 99213; G0463